=== PATIENT | male | born 1990 | race African-American/Black ===

== ENCOUNTER 2021-12-05 16:04 | Emergency (ER) | payer OTHER ==
[2021-12-05] MEDS ORDERED: Alum Hydroxide/Mag Hydroxide 15 ML, Lidocaine 2% 15 ML PO ONE ×2 (16:20)
== END 2021-12-05 19:04 | disposition home or self-care (01) ==
LOC: FB.ED 16:04
DX: R07.9 Chest pain, unspecified (principal); Z88.5 Allergy status to narcotic agent
CPT/HCPCS: 36415; 71046; 74176; 80053; 83690; 84484; 85027; 93005; 93010; 99282; 99285-25; A9270-GY